=== PATIENT | female | born 1985 | race Caucasian/White ===

== ENCOUNTER 2019-03-15 07:09 | Inpatient (IN) | payer OTHER ==
[~2019-03-15] VITALS: Ht 172.7 cm; Wt 86.4 kg
[2019-03-15] VITALS (46 sets, daily range): BP systolic 98–125; BP diastolic 56–81; PULSE 63–100; TEMP 97.9–98.6
[~2019-03-15 07:09] MED LIST: MOTRIN 600600 MG/TAB PO; PERCOCET 325 MG1 TA2 PO; PRENATAL
--- NOTE | 2019-03-15 07:15 | NUR ---
Patient arrives ambulatory with for scheduled induction of labor. Patient denies contractions, ROM or vaginal bleeding. Reports normal movement. Patient changes into gown, EFM explained and placed. VSS. Plan of care for induction reviewed, patient agrees and denies questions. 0725- IV started in LFA, labs obtained and LR infusing. Consents explained and signed. Denies questions. Assessment completed. SVE unchanged from office. Discussing Pitocin administration with patient, denies questions. 0800- Pitocin started at 2 mU per protocol and order. Will monitor per protocol. Call light in reach. at bedside.
[2019-03-15] MEDS ORDERED: VITAMIN C500 MG PO (07:37)
[2019-03-15 07:58] LABS: BASO % 0.3 % (0.0-2.0); EOS # 0.1 (0.0-0.7); EOS % 0.6 % (0-4.0); GRAN # 6.1 (1.4-6.5); GRAN % 69.1 % (42.2-75.2); HEMOGLOBIN 11.3 g/dl (12.5-16.0); LYMPH # 2.1 (1.2-3.4); LYMPH % 23.8 % (20.0-51.0); MEAN CELL VOLUME 87 fl (80.0-100.0); MEAN CORPUSCULAR HEMOGLOBIN 29 pg (27.0-31.0); MEAN CORPUSCULAR HGB CONC 33 g/dl (33.0-37.0); MONO # 0.5 (0.1-0.6); MONO % 5.1 % (1.7-9.3); PLATELET COUNT 193 K/mm3 (130-400); RED BLOOD COUNT 3.96 M/mm3 (4.10-5.30); REDCELL DISTRIBUTION WIDTH-CV 14.2 % (11.5-14.5)
[2019-03-15 08:03] LABS: HEMATOCRIT 34.5 % (37.0-47.0)
--- NOTE | 2019-03-15 08:15 | NUR ---
Patient up to bathroom then back on EFM. Roles at bedside. SVE per provider unchanged at /-3. Discussing plan of care to continue Pitocin induction and physician will perform AROM later this afternoon. Patient may have epidural when desired. Will monitor per protocol.
--- NOTE | 2019-03-15 10:45 | NUR ---
Difficulty tracing contractions via toco after repositioning patient RL. RN at bedside palpating abdomen and adjusting toco.
--- NOTE | 2019-03-15 12:30 | NUR ---
Roles at bedside. Discussing plan of care for AROM, patient agrees. 1231- SVE per provider /. AROM by Dr. Diaz for small amount of clear fluid. Pericare given and patient updated on plan of care. Denies need at this time. Orders to hold Pitocin at 20 mU for one hour and if patient is not more uncomfortable by then go up to 30 mU.
--- NOTE | 2019-03-15 13:30 | NUR ---
1330- Savanah Palomares FINANCIAL SERVICES SPECIALIST at bedside. Patient assisted to sit on edge of bed for epidural placement. Difficulty tracing FHR continuously due to position. 1343- Epidural test dose by Savanah Palomares CRNA. Patient tolerates well, no adverse reactions noted. See anesthesia record. 1347- Patient repositioned WL following epidural. Plan of care and safety reviewed. Will monitor per protocol.
--- NOTE | 2019-03-15 14:40 | NUR ---
SVE /-2. Pericare given. Joseph catheter placed per protocol. Patient repositioned RL with left leg in stirrup. Patient comfortable with epidural.
--- NOTE | 2019-03-15 15:50 | NUR ---
Patient repositioned LL with peanut ball in place.
--- NOTE | 2019-03-15 17:00 | NUR ---
1700- Patient reports increased pressure. SVE AL/2. Dr. Diaz notified and requested for impending delivery. RN remains at bedside. Joseph catheter removed prior to pushing. 1710- Dr. Diaz at bedside. SVE 2. Patient prepped for delivery and assisted to foot plates. Nursery RN to bedside. 1714- Patient begins pushing with ctx, moves vertex well. 1716- of viable female infant attended by Dr. Diza. Apgars . Care of infant to AWilly Casas RN. 1719- Spont. delivery of placenta. Pitocin bolus at 333 ml/hr/protocol. Fundus noted boggy, continued massage and Methergine IM and Cytotec orders. See EMAR. Vaginal bleeding improves with interventions. Second degree perineal laceration repaired by physician. Pericare given and ice pack to perineum.
--- NOTE | 2019-03-15 18:20 | NUR ---
1820- BEDSIDE REPORT RECEIVED. 1829- PT REPORTS NAUSEA AND VOMITS 200ML EMISIS. 1899- PT REPORTS STILL FEELING NAUSEOUS AND A LITTLE DIZZY. WILL OBTAIN ORDER FOR ZOFRAN. 1915- ZOFRAN GIVEN ORDERED. 1999- PT REPORTS NAUSEA AND DIZZINESS HAVE RESOLVED. SHE WAS EVEN ABLE TO EAT PART OF HER DINNER TRAY. 2014- IV TO SALINE LOCK. EPIDURAL CATHETER REMOVED WITH BLUE TIP INTACT. PT ASSISTED TO AMBULATE TO BATHROOM. ABLE TO VOID 400ML WITHOUT DIFFICULTY. PT PERFORMS PERICARE. NORMAL LOCHIA DISCUSSED. CLEAN GOWN, PAD, AND PANTIES PROVIDED. 2029- PT TO NURSERY VIA WHEELCHAIR TO WATCH PART OF BABY BATH. 2044- PT TO ROOM 216 PER WHEELCHAIR, BABY AND BELONGINGS WITH PT. PT AND ORIENTED TO ROOM AND CALL LIGHTS. PLAN OF CARE DISCUSSED AND QUESTIONS ANSWERED.
[2019-03-16 01:39] VITALS: BP 105/74; PULSE 71; TEMP 98.8
[2019-03-16 05:35] VITALS: BP 103/69; PULSE 79; TEMP 97.8
[2019-03-16] MEDS ORDERED: MOTRIN 600600 MG/TAB PO (08:13)
--- NOTE | 2019-03-16 08:56 | NUR ---
Initial visit attempt; Nurse with patient, Digital Advertising Analyst left card of congratulaions for the of their daughter and information regarding the availability of [facility] at [facility].
[2019-03-16 08:58] VITALS: BP 122/70; PULSE 68; TEMP 97.7
[2019-03-16 12:30] VITALS: BP 116/70; PULSE 66; TEMP 98
[2019-03-16 17:06] VITALS: BP 110/75; PULSE 83; TEMP 98.4
--- NOTE | 2019-03-16 18:40 | NUR ---
1840 DISMISSED TO HOME ACC BY FAMILY
== END 2019-03-16 18:40 | disposition home or self-care (01) | DRG 807 ==
LOC: OB 07:09 → LDR 07:09 → OB 20:30
PROVIDERS: ADMIT Obstetrics & Gynecology
PROC: 10E0XZZ Delivery of Products of Conception, External Approach (ICD-10-PCS; principal; 2019-03-15)
PROC: 0KQM0ZZ Repair Perineum Muscle, Open Approach (ICD-10-PCS; 2019-03-15)
PROC: 3E033VJ Introduction of Other Hormone into Peripheral Vein, Percutaneous Approach (ICD-10-PCS; 2019-03-15)
DX: O70.1 Second degree perineal laceration during delivery (principal); Z37.0 Single live birth; Z3A.39 39 weeks gestation of pregnancy
CPT/HCPCS: J2210; J2405; J2590; J2791; J7120

== ENCOUNTER → 2021-01-01 | Outpatient (CLI) | payer OTHER ==
[~2021-01-01] MED LIST changes: +VITAMIN C500 MG PO
== END ==
LOC: COL.RAD 07:30
DX: H55.00 Unspecified nystagmus (principal); Z92.29 Personal history of other drug therapy
CPT/HCPCS: A9585

== ENCOUNTER 2021-01-12 20:42 | Emergency (ER) | payer OTHER ==
[~2021-01-12] VITALS: Ht 172.7 cm; Wt 70.5 kg
[2021-01-12 20:46] VITALS: TEMP 98.4
[2021-01-12 21:31] LABS: BASO # 0.1 (0.0-0.2); BASO % 0.7 % (0.0-2.0); EOS # 0.1 (0.0-0.7); EOS % 0.6 % (0-4.0); GRAN # 3.9 (1.4-6.5); GRAN % 43.7 % (42.2-75.2); HEMATOCRIT 42.6 % (37.0-47.0); HEMOGLOBIN 14.1 g/dl (12.5-16.0); LYMPH # 4.4 (1.2-3.4); LYMPH % 48.7 % (20.0-51.0); MEAN CELL VOLUME 87 fl (80.0-100.0); MEAN CORPUSCULAR HEMOGLOBIN 29 pg (27.0-31.0); MEAN CORPUSCULAR HGB CONC 33 g/dl (33.0-37.0); MEAN PLATELET VOLUME 9.4 fl (7.4-10.4); MONO # 0.6 (0.1-0.6); MONO % 6.2 % (1.7-9.3); PLATELET COUNT 291 K/mm3 (130-400); RED BLOOD COUNT 4.89 M/mm3 (4.10-5.30); REDCELL DISTRIBUTION WIDTH-CV 12.4 % (11.5-14.5)
[2021-01-12 21:44] LABS: ALANINE AMINOTRANSFERASE 11 U/L (4-34); ALBUMIN 4.7 gm/dL (3.5-5.0); ALKALINE PHOSPHATASE 61 U/L (50-136); ANION GAP 8 mmol/L (7-16); AST,SGOT 20 U/L (15-37); BILIRUBIN,TOTAL 0.4 mg/dL (0.0-1.0); BLOOD UREA NITROGEN 14 mg/dL (7-17); CALCIUM 9.4 mg/dL (8.4-10.2); CARBON DIOXIDE 30 mmol/L (22-30); CHLORIDE 102 mmol/L (98-107); CREATININE, serum 0.76 (0.52-1.25); GLUCOSE 102 mg/dL (74-106); SODIUM 139 mmol/L (137-145); TOTAL PROTEIN 7.7 gm/dL (6.4-8.2)
[2021-01-12 21:55] LABS: ERYTHROCYTE SEDIMENTATION RATE 2 mm/hr (0-20)
[2021-01-12 21:56] LABS: C-REACTIVE PROTEIN < 0.5 mg/dL (0.0-0.9)
[2021-01-12 21:57] LABS: POTASSIUM 3.5 mmol/L (3.4-5.0)
[2021-01-12 22:33] VITALS: BP 124/78; PULSE 82
== END 2021-01-12 22:33 | disposition home or self-care (01) ==
LOC: COL.ER 20:42
PROVIDERS: Emergency Medicine
DX: H53.2 Diplopia (principal); H55.00 Unspecified nystagmus
CPT/HCPCS: J7030